=== PATIENT | male | born 1925 | race African-American/Black ===

== ENCOUNTER 2016-03-27 15:56 | Inpatient (IN) | payer MEDICARE ==
--- NOTE | 2016-03-27 16:10 | ER Document Report ---
ED General <WICHO MG - Last Filed: 03/28/16 00:25> - General Mode of Arrival: Medic Information source: Emergency Med Personnel TRAVEL OUTSIDE OF THE [place] IN LAST 30 DAYS: No - HPI Onset: This afternoon Onset/Duration: Sudden Quality of pain: No pain Associated symptoms: Fever Exacerbated by: Denies Relieved by: Denies Similar symptoms previously: No Recently seen / treated by doctor: No <GRADY THOMAS - Last Filed: 03/28/16 20:36> - General Stated Complaint: POSSIBLE UTI Notes: Patient presents to the emergency department via EMS for reports of lethargic warm to touch incontinence of urine possible UTI. Hegets reports the patient lives in a private home with a drying room attendant and several other residents. Report was that patient was normal this morning. This afternoon after lunch patient became warm hearts with lethargic and was incontinent of urine. Patient is not normally incontinent. Patient has history of COPD hypertension and chronic kidney disease. Patient is alert and orientated to self upon arrival. He is pleasant in no distress (GRADY THOMAS) - Related Data Allergies/Adverse Reactions: No Known Allergies Allergy (Verified 03/28/16 01:17) Home Medications: Current Home Medications Omeprazole 40 mg PO DAILY 03/28/16 [History] Past Medical History - General Information source: Patient - Social History Smoking Status: Former Smoker Frequency of alcohol use: None Drug Abuse: None Lives with: Other - home residence with drying room attendant Family History: Reviewed & Not Pertinent - Past Medical History Cardiac Medical History: Reports: Hx Hypercholesterolemia, Hx Hypertension, Hx Peripheral Vascular Disease Pulmonary Medical History: Reports: Hx COPD Denies: Hx Tuberculosis Neurological Medical History: Reports: Hx Cerebrovascular Accident. Denies: Hx Seizures Endocrine Medical History: Denies: Hx Diabetes Mellitus Type 1, Hx Diabetes Mellitus Type 2 Musculoskeltal Medical History: Reports Hx Arthritis - Generalized. Past Surgical History: Reports: Hx Orthopedic Surgery. Denies: Hx Pacemaker - Immunizations Immunizations up to date: Yes Hx Diphtheria, Pertussis, Tetanus Vaccination: Yes <GRADY THOMAS - Last Filed: 03/28/16 20:36> Review of Systems <WICHO MG - Last Filed: 03/28/16 00:25> <GRADY THOMAS - Last Filed: 03/28/16 20:36> - Review of Systems Notes: Review HPI for review of systems., All other systems negative (GRADY THOMAS) Physical Exam <WICHO MG - Last Filed: 03/28/16 00:25> <GRADY THOMAS - Last Filed: 03/28/16 20:36> - Vital signs Vitals: Resp 19 03/27/16 16:24 (WICHO MG) - Notes Notes: PHYSICAL EXAMINATION: GENERAL: Nontoxic looking HEAD: Atraumatic, normocephalic. EYES: extraocular movements intact, sclera anicteric, conjunctiva are normal. ENT: nares patent, Moist mucous membranes. mumbles NECK: Normal range of motion, supple without lymphadenopathy LUNGS: CTAB and equal. No wheezes rales or rhonchi. HEART: Regular rate and rhythm without murmurs ABDOMEN: Soft, no tenderness. No guarding, no rebound EXTREMITIES: Normal range of motion, no pitting edema. No cyanosis. NEUROLOGICAL: Cranial nerves grossly intact. Normal sensory/motor exams. PSYCH: Normal mood, calm, no distress SKIN: Warm, Dry, normal turgor for patient (GRADY THOMAS) Course - Laboratory Result Diagrams: 03/27/16 16:40 03/27/16 16:40 <WICHO MG - Last Filed: 03/28/16 00:25> - Laboratory Result Diagrams: 03/28/16 05:29 03/28/16 05:29 - Diagnostic Test Radiology reviewed: Image reviewed, Reports reviewed - negative - EKG Interpretation by Oh Rhythm: A.Fib <GRADY THOMAS - Last Filed: 03/28/16 20:36> - Re-evaluation Re-evalutation: Patient hypotensive, giving additional IV fluids, patient's dosing of vancomycin delayed due to difficulty getting the patient weighed, after this was accomplished vancomycin 1250 mg was ordered. Blood pressure significantly improved, then normalized. Patient with no headache, full range of motion, alert and responsive, very low suspicion of meningitis. Abdomen is only mildly tender on examination, urine does not show any overt evidence of infection, shows hematuria, discussed with Dr. Thorpe. CAT scan performed, influenza tested, both are unremarkable. Called and spoke with Dr. Cardenas, on-call for patient's primary provider, patient will be admitted to the hospital for fever, hypotension, SIRS. (WICHO MG) 03/27/16 18:06 I do not have a current weight, I will base fluid bolus for sepsis based on weight of 57.8 with 30ml/kg from previous weight from September 2015 for approximately 1700 mL. Patient has received 500 mL from EMS. Will order denies was 1000 ml normal saline bolus. WBC 11. Waiting for urine. Lactic acid 2.5 03/27/16 19:14 Report given to Wicho SUTHERLAND (GRADY THOMAS) - Vital Signs Vital signs: Temp Pulse Resp BP Pulse Ox 98.4 F 81 18 113/47 L 99 03/28/16 19:31 03/28/16 19:31 03/28/16 19:31 03/28/16 19:31 03/28/16 19:31 (WICHO MG) - Laboratory Laboratory results interpreted by me: 03/27/16 03/27/16 03/27/16 16:40 16:40 16:40 WBC 11.9 H RBC 4.30 L Hgb 11.4 L Hct 33.4 L MCV 78 L MCH 26.5 L RDW 17.4 H Plt Count 102 L Seg Neutrophils % 81.3 H Lymphocytes % 6.9 L Absolute Neutrophils 9.6 H Potassium 3.1 L Carbon Dioxide 20 L BUN 29 H Creatinine 2.26 H Est GFR ( Amer) 33 L Est GFR (Non-Af Amer) 27 L Glucose 129 H Lactic Acid 2.5 H Urine Protein Urine Blood Ur Leukocyte Esterase 03/27/16 18:45 WBC RBC Hgb Hct MCV MCH RDW Plt Count Seg Neutrophils % Lymphocytes % Absolute Neutrophils Potassium Carbon Dioxide BUN Creatinine Est GFR ( Amer) Est GFR (Non-Af Amer) Glucose Lactic Acid Urine Protein 30 H Urine Blood LARGE H Ur Leukocyte Esterase SMALL H (WICHO MG) Discharge - Discharge Admitting Provider: Ronald - for Dr. Anglin Unit Admitted: Telemetry <WICHO MG - Last Filed: 03/28/16 00:25> <GRADY THOMAS - Last Filed: 03/28/16 20:36> - Discharge Clinical Impression: SIRS (systemic inflammatory response syndrome) Fever Qualifiers: Fever type: unspecified Qualified Code(s): R50.9 - Fever, unspecified Hypotension Qualifiers: Hypotension type: unspecified hypotension type Qualified Code(s): I95.9 - Hypotension, unspecified Condition: Stable Disposition: ADMITTED INPATIENT
[2016-03-27 17:00] LABS: ABSOLUTE BASOPHILS # (AUTO) 0.1 10^3/uL (0.0-0.2); ABSOLUTE LYMPHOCYTES (AUTO) 0.8 10^3/uL (0.5-4.7); ABSOLUTE MONOCYTES (AUTO) 1.3 10^3/uL (0.1-1.4); ABSOLUTE NEUT (AUTO) 9.6 10^3/uL (1.7-8.2); BASOPHILS % (AUTO) 0.8 % (0-2); EOSINOPHILS % (AUTO) 0.3 % (0-6); HEMATOCRIT 33.4 % (37.9-51.0); HEMOGLOBIN 11.4 g/dL (13.5-17.0); HGB HCT DIFFERENCE 0.8; LYMPHOCYTES % (AUTO) 6.9 % (13-45); MEAN CORPUSCULAR HEMOGLOBIN 26.5 pg (27.0-33.4); MEAN CORPUSCULAR HGB CONC 34.2 g/dL (32.0-36.0); MEAN CORPUSCULAR VOLUME 78 fl (80-97); MONOCYTES % (AUTO) 10.7 % (3-13); RED CELL DISTRIBUTION WIDTH 17.4 % (11.5-14.0); SEGMENTED NEUTROPHILS % (AUTO) 81.3 % (42-78); WHITE BLOOD COUNT 11.9 10^3/uL (4.0-10.5)
[2016-03-27 17:19] LABS: ALANINE AMINOTRANSFERASE 22 U/L (21-72); ALBUMIN 3.8 g/dL (3.5-5.0); ALKALINE PHOSPHATASE 86 U/L (38-126); ANION GAP 15 (5-19); ASPARTATE AMINO TRANSFERASE 19 U/L (17-59); BILIRUBIN,TOTAL 0.8 mg/dL (0.2-1.3); BLOOD UREA NITROGEN 29 mg/dL (7-20); CALCIUM 9.3 mg/dL (8.4-10.2); CARBON DIOXIDE 20 mmol/L (22-30); CHLORIDE 106 mmol/L (98-107); CREATININE RESULT 2.26 mg/dL (0.52-1.25); GLUCOSE 129 mg/dL (75-110); LIPASE 129.2 U/L (23-300); POTASSIUM 3.1 mmol/L (3.6-5.0); SODIUM 141.3 mmol/L (137-145); TOTAL PROTEIN 7.1 g/dL (6.3-8.2)
[2016-03-27] MEDS ORDERED: NORMAL SALINE 1000 ML 1,000 ML IV ONE ×2 (17:52→19:13)
[2016-03-27] MEDS ORDERED: CEFTRIAXONE RTU 1 GM/D5W 50 ML IV ONE (17:53)
[2016-03-27] MEDS ORDERED: LIDOCAINE 2% URO-JET 5 ML KIT MM ONE (18:31)
[2016-03-27 20:40] LABS: AMORPHOUS SEDIMENT,URINE TRACE /HPF; APPEARANCE,URINE CLOUDY; BILIRUBIN,URINE NEGATIVE (NEGATIVE); GLUCOSE, URINE NEGATIVE (NEGATIVE); KETONES,URINE NEGATIVE (NEGATIVE); LEUKOCYTE ESTERASE,URINE SMALL (NEGATIVE); NITRITE,URINE NEGATIVE (NEGATIVE); PROTEIN,URINE 30 mg/dL (NEGATIVE); URINE SPECIFIC GRAVITY 1.019; UROBILINOGEN,URINE NEGATIVE mg/dL (<2.0)
[2016-03-27] MEDS ORDERED: VANCOMYCIN HCL INJ 1000 MG VIAL IV ONE (22:27)
--- NOTE | 2016-03-27 22:40 | EKG REPORT ---
SEVERITY:- ABNORMAL ECG - ATRIAL FIBRILLATION, V-RATE 61-108 VENTRICULAR PREMATURE COMPLEX BORDERLINE PROLONGED QT INTERVAL : Confirmed by: Genaro De León MD 27-Mar-2016 22:38:41
[2016-03-27] MEDS ORDERED: ACETAMINOPHEN 325 MG TABLET PO PRN (23:39)
[2016-03-28] MEDS: POTASSI CL 20 MEQ/NS 1L 1,000 ML IV PRN ×2 (02:57→15:15)
[2016-03-28 05:58] LABS: ABSOLUTE BASOPHILS # (AUTO) 0.1 10^3/uL (0.0-0.2); ABSOLUTE LYMPHOCYTES (AUTO) 1.1 10^3/uL (0.5-4.7); ABSOLUTE MONOCYTES (AUTO) 2.4 10^3/uL (0.1-1.4); ABSOLUTE NEUT (AUTO) 15.1 10^3/uL (1.7-8.2); BASOPHILS % (AUTO) 0.5 % (0-2); EOSINOPHILS % (AUTO) 0.2 % (0-6); HEMATOCRIT 28.5 % (37.9-51.0); HEMOGLOBIN 9.7 g/dL (13.5-17.0); HGB HCT DIFFERENCE 0.6; LYMPHOCYTES % (AUTO) 5.8 % (13-45); MEAN CORPUSCULAR HEMOGLOBIN 26.3 pg (27.0-33.4); MEAN CORPUSCULAR HGB CONC 33.9 g/dL (32.0-36.0); MEAN CORPUSCULAR VOLUME 78 fl (80-97); MONOCYTES % (AUTO) 12.8 % (3-13); RED BLOOD COUNT 3.68 10^6/uL (4.35-5.55); RED CELL DISTRIBUTION WIDTH 17.2 % (11.5-14.0); SEGMENTED NEUTROPHILS % (AUTO) 80.7 % (42-78); WHITE BLOOD COUNT 18.8 10^3/uL (4.0-10.5)
[2016-03-28 06:11] LABS: ANION GAP 10 (5-19); BLOOD UREA NITROGEN 23 mg/dL (7-20); CALCIUM 8.4 mg/dL (8.4-10.2); CARBON DIOXIDE 23 mmol/L (22-30); CHLORIDE 108 mmol/L (98-107); CREATININE RESULT 1.76 mg/dL (0.52-1.25); GLUCOSE 109 mg/dL (75-110); POTASSIUM 3.6 mmol/L (3.6-5.0); SODIUM 140.8 mmol/L (137-145)
[2016-03-28] MEDS: ENOXAPARIN SODIUM INJ 30 MG/0.3 ML DISP.SYRIN SUBCUT SCH (08:31)
[2016-03-28] MEDS: CEFEPIME 1 GM/D5W RTU 50 ML IV SCH ×2 (10:44→22:45)
[2016-03-28] MEDS: FAMOTIDINE INJ/PF 20 MG/2 ML SDV IV SCH ×2 (10:45→22:45)
--- NOTE | 2016-03-28 11:31 | PDOC H&P ---
History of Present Illness Admission Date/PCP: 03/27/16 23:40 NAMITA MCCAULEY, Patient complains of: Altered mental status History of Present Illness: ALINA LEHMAN is a 89 year old male The patient's present to the emergency department via EMS to deport more lethargic warm to touch and possible urinary tract infections and altered mental status and the interim is a department patient's symptoms have a CT abdomen and pelvis and all other blood work was done and found the possible urinary tract infections and decided to admit in the hospital further evaluation and treatment patient has a significant history of the heart to hearing and also COPD hypertension chronic kidney disease patient was given Rocephin 1 g IV in the ER and the patient's also start IV fluid and I saw the patient in the floor patient is doing well denied any chest pain no short of breath patient's is very hard to hearing other than that no other events happen overnights this current blood pressure medication was stopped because of the low blood pressure due to the possible infections he had patient's other blood work is stable Past Medical History Cardiac Medical History: Reports: Hyperlipidema, Hypertension, Peripheral Vascular Disease Pulmonary Medical History: Reports: Chronic Obstructive Pulmonary Disease (COPD) Denies: Tuberculosis Neurological Medical History: Denies: Seizures Endocrine Medical History: Denies: Diabetes Mellitus Type 1, Diabetes Mellitus Type 2 GI Medical History: Reports: Gastroesophageal Reflux Disease GI History Note: Dysphagia status post balloon meditations per Dr. Valencia Musculoskeltal Medical History: Reports: Arthritis - Generalized. Psychiatric Medical History: Reports: Dementia Hematology: Reports: Anemia Past Surgical History Past Surgical History: Reports: Orthopedic Surgery, Other Denies: Pacemaker Social History Lives with: Other - home residence with wilton weaver Smoking Status: Smoker,Current Status Unk Frequency of Alcohol Use: None Hx Recreational Drug Use: No Drugs: None Hx Prescription Drug Abuse: No - Advance Directive Resuscitation Status: Full Code Family History Family History: Reviewed & Not Pertinent Parental Family History Reviewed: Yes Children Family History Reviewed: Yes Sibling(s) Family History Reviewed.: Yes Medication/Allergy Home Medications: Albuterol Sulfate [Proair HFA] 1 - 2 puff IH Q4 PRN 02/01/15 Amlodipine Besylate 10 mg PO DAILY 02/01/15 Aspirin [Aspirin 81 mg Chewable Tablet] 81 mg PO DAILY 02/01/15 Losartan/Hydrochlorothiazide [Hyzaar 100-12.5 Tablet] 1 each PO DAILY 02/01/15 Omeprazole 40 mg PO DAILY 03/28/16 Allergies/Adverse Reactions: No Known Allergies Allergy (Verified 03/28/16 01:17) Review of Systems Constitutional: PRESENT: weakness Ears: PRESENT: hearing changes Nose, Mouth, and Throat: ABSENT: as per HPI, headache(s), mouth pain, sore throat, vertigo, other Cardiovascular: ABSENT: as per HPI, chest pain, dyspnea on exertion, edema, orthropnea, palpitations, other Respiratory: ABSENT: as per HPI, cough, dyspnea, hemoptysis, sputum, other Gastrointestinal: ABSENT: as per HPI, abdominal pain, bloating, coffee ground emesis, constipation, diarrhea, dysphagia, heartburn, hematemesis, hematochezia , melena, nausea, vomiting, other Genitourinary: ABSENT: difficulty urinating Musculoskeletal: ABSENT: back pain Integumentary: ABSENT: as per HPI, diaphoresis, erythema, lesions, pruritus, rash, wounds, other Neurological: PRESENT: confusion Physical Exam Vital Signs: Temp Pulse Resp BP Pulse Ox 98.7 F 78 16 97/49 L 99 03/28/16 09:09 03/28/16 09:09 03/28/16 09:09 03/28/16 09:09 03/28/16 09:09 Intake & Output 03/27/16 03/28/16 03/29/16 06:59 06:59 06:59 Intake Total 200 Balance 200 Weight 57.6 kg General appearance: PRESENT: no acute distress Eye exam: PRESENT: PERRLA Ear exam: PRESENT: other Additional comments: hard to hearing Mouth exam: PRESENT: dry mucosa Neck exam: PRESENT: full ROM Respiratory exam: PRESENT: clear to auscultation nino Cardiovascular exam: PRESENT: +S1, +S2 GI/Abdominal exam: PRESENT: normal bowel sounds, soft. ABSENT: tenderness Extremities exam: ABSENT: pedal edema Neurological exam: PRESENT: alert, awake Psychiatric exam: PRESENT: anxious Skin exam: PRESENT: normal color Results Laboratory Results: 03/28/16 05:29 03/28/16 05:29 03/28/16 03/28/16 05:29 05:29 WBC 18.8 H RBC 3.68 L Hgb 9.7 L Hct 28.5 L MCV 78 L MCH 26.3 L MCHC 33.9 RDW 17.2 H Plt Count 99 L Seg Neutrophils % 80.7 H Lymphocytes % 5.8 L Monocytes % 12.8 Eosinophils % 0.2 Basophils % 0.5 Absolute Neutrophils 15.1 H Absolute Lymphocytes 1.1 Absolute Monocytes 2.4 H Absolute Eosinophils 0.0 Absolute Basophils 0.1 Sodium 140.8 Potassium 3.6 Chloride 108 H Carbon Dioxide 23 Anion Gap 10 BUN 23 H Creatinine 1.76 H Est GFR ( Amer) 44 L Est GFR (Non-Af Amer) 37 L Glucose 109 Calcium 8.4 Impressions: Chest X-Ray 03/27/16 16:09 IMPRESSION: NO ACUTE RADIOGRAPHIC FINDING IN THE CHEST. Abdomen/Pelvis CT 03/27/16 22:29 IMPRESSION: NO SIGNIFICANT OR ACUTE PROCESS IN THE ABDOMEN OR PELVIS. Assessment & Plan - Diagnosis (1) Urinary tract infection Qualifiers: Urinary tract infection type: site unspecified Is this a current diagnosis for this admission?: YesPlan: The urine culture and start the patient on IV cefepime until the cultures come back (2) Hypokalemia Is this a current diagnosis for this admission?: YesPlan: Replace the potassium and IV fluid (3) Dementia Qualifiers: Dementia type: unspecified type Is this a current diagnosis for this admission?: YesPlan: Stable (4) Hypotension Qualifiers: Hypotension type: unspecified hypotension type Qualified Code(s): I95.9 - Hypotension, unspecified Is this a current diagnosis for this admission?: YesPlan: Due to the sepsis continues IV fluid and hold all blood pressure medications (5) SIRS (systemic inflammatory response syndrome) Is this a current diagnosis for this admission?: YesPlan: The sepsis from possible UTI I will get the blood cultures urine culture and continues to monitor the patient on IV antibiotic (6) Acute kidney injury Is this a current diagnosis for this admission?: YesPlan: Problem possible infections UTI will hold all blood pressure medications and continues IV fluid and continues to monitor - Time Time Spent: 30 to 50 Minutes Medications reviewed and adjusted accordingly: Yes Anticipated discharge: Home, Other - Inpatient Certification Medical Necessity: Significant Comorbidiites Make Outpatient Treatment Too Risky , Need For IV Fluids, Need for IV Antibiotics Post Hospital Care: D/C O[facility] Documentation - Plan Summary Plan Summary: Admitting the patient and a floor bed start the IV fluid IV antibiotic wait for all cultures and replace the potassium and continues to monitor the patient
[2016-03-29] MEDS: POTASSI CL 20 MEQ/NS 1L 1,000 ML IV PRN ×2 (06:30→13:03)
[2016-03-29 07:19] LABS: ANION GAP 14 (5-19); BLOOD UREA NITROGEN 14 mg/dL (7-20); CALCIUM 8.7 mg/dL (8.4-10.2); CARBON DIOXIDE 20 mmol/L (22-30); CHLORIDE 107 mmol/L (98-107); CREATININE RESULT 1.29 mg/dL (0.52-1.25); GLUCOSE 101 mg/dL (75-110); POTASSIUM 3.6 mmol/L (3.6-5.0); SODIUM 140.8 mmol/L (137-145)
[2016-03-29 07:35] LABS: ABSOLUTE BASOPHILS # (AUTO) 0.1 10^3/uL (0.0-0.2); ABSOLUTE EOSINOPHILS # (AUTO) 0.1 10^3/uL (0.0-0.6); ABSOLUTE LYMPHOCYTES (AUTO) 0.8 10^3/uL (0.5-4.7); ABSOLUTE MONOCYTES (AUTO) 0.9 10^3/uL (0.1-1.4); ABSOLUTE NEUT (AUTO) 9.6 10^3/uL (1.7-8.2); BASOPHILS % (AUTO) 0.5 % (0-2); EOSINOPHILS % (AUTO) 0.7 % (0-6); HEMATOCRIT 30.5 % (37.9-51.0); HEMOGLOBIN 10.3 g/dL (13.5-17.0); HGB HCT DIFFERENCE 0.4; LYMPHOCYTES % (AUTO) 6.9 % (13-45); MEAN CORPUSCULAR HEMOGLOBIN 26.4 pg (27.0-33.4); MEAN CORPUSCULAR HGB CONC 33.7 g/dL (32.0-36.0); MEAN CORPUSCULAR VOLUME 78 fl (80-97); MONOCYTES % (AUTO) 8.3 % (3-13); RED CELL DISTRIBUTION WIDTH 17.1 % (11.5-14.0); SEGMENTED NEUTROPHILS % (AUTO) 83.6 % (42-78); WHITE BLOOD COUNT 11.4 10^3/uL (4.0-10.5)
[2016-03-29 07:36] LABS: ACANTHOCYTES 1+; ANISOCYTOSIS 1+; HYPOCHROMASIA SLIGHT; OVALOCYTES SLIGHT; POIKILOCYTOSIS 1+; POLYCHROMASIA SLIGHT; TOXIC GRANULATION SLIGHT
--- NOTE | 2016-03-29 09:55 | PDOC PROGRESS REPORT ---
Subjective Progress Note for:: 03/29/16 Subjective:: Patient is doing very well. Currently seated in chair patient's denied any chest pain no abdominal pain no nausea no vomiting patient's kidney function is also improving . All blood culture and urine culture is negative Physical Exam Vital Signs: Temp Pulse Resp BP Pulse Ox 98.7 F 88 20 128/53 H 97 03/28/16 23:30 03/28/16 23:30 03/28/16 23:30 03/28/16 23:30 03/28/16 23:30 Intake & Output 03/28/16 03/29/16 03/30/16 06:59 06:59 06:59 Intake Total 200 3218 Output Total 400 Balance 200 2818 Weight 57.6 kg 78.8 kg General appearance: PRESENT: no acute distress Head exam: PRESENT: normocephalic Additional Comments: Very hard to hearing Mouth exam: PRESENT: neck supple Respiratory exam: PRESENT: clear to auscultation nino Cardiovascular exam: PRESENT: +S1, +S2 GI/Abdominal exam: PRESENT: normal bowel sounds, soft Extremities exam: ABSENT: pedal edema Neurological exam: PRESENT: alert, awake, oriented to person, oriented to place Psychiatric exam: PRESENT: normal mood Skin exam: PRESENT: normal color Results Laboratory Results: 03/29/16 05:40 03/29/16 05:40 03/29/16 03/29/16 05:40 05:40 WBC 11.4 H RBC 3.90 L Hgb 10.3 L Hct 30.5 L MCV 78 L MCH 26.4 L MCHC 33.7 RDW 17.1 H Plt Count 92 L Seg Neutrophils % 83.6 H Lymphocytes % 6.9 L Monocytes % 8.3 Eosinophils % 0.7 Basophils % 0.5 Absolute Neutrophils 9.6 H Absolute Lymphocytes 0.8 Absolute Monocytes 0.9 Absolute Eosinophils 0.1 Absolute Basophils 0.1 Sodium 140.8 Potassium 3.6 Chloride 107 Carbon Dioxide 20 L Anion Gap 14 BUN 14 Creatinine 1.29 H Est GFR ( Amer) > 60 Est GFR (Non-Af Amer) 52 L Glucose 101 Calcium 8.7 Impressions: Chest X-Ray 03/27/16 16:09 IMPRESSION: NO ACUTE RADIOGRAPHIC FINDING IN THE CHEST. Abdomen/Pelvis CT 03/27/16 22:29 IMPRESSION: NO SIGNIFICANT OR ACUTE PROCESS IN THE ABDOMEN OR PELVIS. Assessment & Plan - Diagnosis (1) Urinary tract infection Qualifiers: Urinary tract infection type: site unspecified Is this a current diagnosis for this admission?: YesPlan: The urine culture and start the patient on IV cefepime until the cultures come back (2) Hypokalemia Is this a current diagnosis for this admission?: YesPlan: Replace the potassium and IV fluid (3) Dementia Qualifiers: Dementia type: unspecified type Is this a current diagnosis for this admission?: YesPlan: Stable (4) Hypotension Qualifiers: Hypotension type: unspecified hypotension type Qualified Code(s): I95.9 - Hypotension, unspecified Is this a current diagnosis for this admission?: YesPlan: Continues IV fluid and all resolved (5) SIRS (systemic inflammatory response syndrome) Is this a current diagnosis for this admission?: YesPlan: The sepsis from possible UTI I will get the blood cultures urine culture and continues to monitor the patient on IV antibiotic (6) Acute kidney injury Is this a current diagnosis for this admission?: YesPlan: Continue IV fluid - Time Time Spent with patient: 15-24 minutes Medications reviewed and adjusted accordingly: Yes Anticipated discharge: Home Within: within 48 hours - Inpatient Certification Medical Necessity: Need For IV Fluids, Need for IV Antibiotics - Plan Summary Plan Summary: Continues to IV fluid energy. The Chem-7 in the morning and hopefully patient' s discharge very soon will be discharged with the by mouth antibiotic given the culture is negative
[2016-03-29] MEDS: ENOXAPARIN SODIUM INJ 30 MG/0.3 ML DISP.SYRIN SUBCUT SCH (12:19)
[2016-03-29] MEDS: CEFEPIME 1 GM/D5W RTU 50 ML IV SCH ×2 (12:20→21:56)
[2016-03-29] MEDS: FAMOTIDINE INJ/PF 20 MG/2 ML SDV IV SCH ×2 (12:21→21:56)
[2016-03-30] MEDS: POTASSI CL 20 MEQ/NS 1L 1,000 ML IV PRN (02:17)
[2016-03-30 06:48] LABS: ABSOLUTE BASOPHILS # (AUTO) 0.1 10^3/uL (0.0-0.2); ABSOLUTE EOSINOPHILS # (AUTO) 0.1 10^3/uL (0.0-0.6); ABSOLUTE LYMPHOCYTES (AUTO) 1.4 10^3/uL (0.5-4.7); ABSOLUTE MONOCYTES (AUTO) 1.5 10^3/uL (0.1-1.4); ABSOLUTE NEUT (AUTO) 12.1 10^3/uL (1.7-8.2); BASOPHILS % (AUTO) 0.7 % (0-2); HEMATOCRIT 28.2 % (37.9-51.0); HEMOGLOBIN 9.7 g/dL (13.5-17.0); HGB HCT DIFFERENCE 0.9; LYMPHOCYTES % (AUTO) 9.2 % (13-45); MEAN CORPUSCULAR HEMOGLOBIN 26.4 pg (27.0-33.4); MEAN CORPUSCULAR HGB CONC 34.2 g/dL (32.0-36.0); MEAN CORPUSCULAR VOLUME 77 fl (80-97); MONOCYTES % (AUTO) 9.6 % (3-13); RED BLOOD COUNT 3.65 10^6/uL (4.35-5.55); RED CELL DISTRIBUTION WIDTH 16.6 % (11.5-14.0); SEGMENTED NEUTROPHILS % (AUTO) 79.5 % (42-78); WHITE BLOOD COUNT 15.2 10^3/uL (4.0-10.5)
[2016-03-30 06:51] LABS: ANION GAP 11 (5-19); BLOOD UREA NITROGEN 13 mg/dL (7-20); CALCIUM 8.2 mg/dL (8.4-10.2); CARBON DIOXIDE 20 mmol/L (22-30); CHLORIDE 109 mmol/L (98-107); CREATININE RESULT 1.22 mg/dL (0.52-1.25); GLUCOSE 90 mg/dL (75-110); POTASSIUM 3.9 mmol/L (3.6-5.0); SODIUM 139.8 mmol/L (137-145)
[2016-03-30] MEDS: FAMOTIDINE INJ/PF 20 MG/2 ML SDV IV SCH ×2 (09:49→21:26)
[2016-03-30] MEDS: CEFEPIME 1 GM/D5W RTU 50 ML IV SCH ×2 (09:50→21:26)
--- NOTE | 2016-03-30 18:50 | PDOC PROGRESS REPORT ---
Subjective Progress Note for:: 03/30/16 Subjective:: Patient was admitted because of UTI and acute kidney injury, he is responding to IV antibiotic and also hydration. Physical Exam Vital Signs: Temp Pulse Resp BP Pulse Ox 98.7 F 56 L 18 135/66 H 95 03/30/16 16:03 03/30/16 16:03 03/30/16 16:03 03/30/16 16:03 03/30/16 16:03 Intake & Output 03/29/16 03/30/16 03/31/16 06:59 06:59 06:59 Intake Total 3218 1058 825 Output Total 400 350 Balance 2818 708 825 Weight 78.8 kg 79.2 kg General appearance: PRESENT: no acute distress Eye exam: PRESENT: PERRLA Respiratory exam: PRESENT: clear to auscultation nino Cardiovascular exam: PRESENT: +S1, +S2 GI/Abdominal exam: PRESENT: soft Neurological exam: PRESENT: alert, CN II-XII grossly intact Results Laboratory Results: 03/30/16 05:42 03/30/16 05:42 03/30/16 03/30/16 05:42 05:42 WBC 15.2 H RBC 3.65 L Hgb 9.7 L Hct 28.2 L MCV 77 L MCH 26.4 L MCHC 34.2 RDW 16.6 H Plt Count 93 L Seg Neutrophils % 79.5 H Lymphocytes % 9.2 L Monocytes % 9.6 Eosinophils % 1.0 Basophils % 0.7 Absolute Neutrophils 12.1 H Absolute Lymphocytes 1.4 Absolute Monocytes 1.5 H Absolute Eosinophils 0.1 Absolute Basophils 0.1 Sodium 139.8 Potassium 3.9 Chloride 109 H Carbon Dioxide 20 L Anion Gap 11 BUN 13 Creatinine 1.22 Est GFR ( Amer) > 60 Est GFR (Non-Af Amer) 56 L Glucose 90 Calcium 8.2 L Impressions: Chest X-Ray 03/27/16 16:09 IMPRESSION: NO ACUTE RADIOGRAPHIC FINDING IN THE CHEST. Abdomen/Pelvis CT 03/27/16 22:29 IMPRESSION: NO SIGNIFICANT OR ACUTE PROCESS IN THE ABDOMEN OR PELVIS. Assessment & Plan - Diagnosis (1) Urinary tract infection Qualifiers: Urinary tract infection type: site unspecified Hematuria presence: without hematuria Qualified Code(s): N39.0 - Urinary tract infection, site not specified Is this a current diagnosis for this admission?: YesPlan: Continue IV antibiotic (3) Dementia Qualifiers: Dementia type: Alzheimer's disease Alzheimer's disease onset: early- onset Dementia behavioral disturbance: without behavioral disturbance Qualified Code(s): G30.0 - Alzheimer's disease with early onset; F02.80 - Dementia in other diseases classified elsewhere without behavioral disturbance Is this a current diagnosis for this admission?: Yes (4) Hypokalemia Is this a current diagnosis for this admission?: Yes (5) SIRS (systemic inflammatory response syndrome) Is this a current diagnosis for this admission?: Yes (6) Acute kidney injury Is this a current diagnosis for this admission?: Yes
[2016-03-31] MEDS: POTASSI CL 20 MEQ/NS 1L 1,000 ML IV PRN ×2 (05:10→19:43)
[2016-03-31] MEDS: FAMOTIDINE INJ/PF 20 MG/2 ML SDV IV SCH ×2 (09:16→21:04)
[2016-03-31] MEDS: CEFEPIME 1 GM/D5W RTU 50 ML IV SCH ×2 (09:16→21:04)
[2016-03-31 17:38] LABS: ABSOLUTE BASOPHILS # (AUTO) 0.1 10^3/uL (0.0-0.2); ABSOLUTE EOSINOPHILS # (AUTO) 0.2 10^3/uL (0.0-0.6); ABSOLUTE LYMPHOCYTES (AUTO) 1.2 10^3/uL (0.5-4.7); ABSOLUTE NEUT (AUTO) 12.8 10^3/uL (1.7-8.2); BASOPHILS % (AUTO) 0.7 % (0-2); HEMATOCRIT 28.2 % (37.9-51.0); HEMOGLOBIN 9.6 g/dL (13.5-17.0); HGB HCT DIFFERENCE 0.6; LYMPHOCYTES % (AUTO) 7.9 % (13-45); MEAN CORPUSCULAR HEMOGLOBIN 26.3 pg (27.0-33.4); MEAN CORPUSCULAR HGB CONC 33.9 g/dL (32.0-36.0); MEAN CORPUSCULAR VOLUME 78 fl (80-97); MONOCYTES % (AUTO) 6.4 % (3-13); RED BLOOD COUNT 3.64 10^6/uL (4.35-5.55); RED CELL DISTRIBUTION WIDTH 16.9 % (11.5-14.0); WHITE BLOOD COUNT 15.3 10^3/uL (4.0-10.5)
[2016-03-31 17:48] LABS: ALANINE AMINOTRANSFERASE 33 U/L (21-72); ALBUMIN 2.8 g/dL (3.5-5.0); ALKALINE PHOSPHATASE 67 U/L (38-126); ANION GAP 11 (5-19); ASPARTATE AMINO TRANSFERASE 21 U/L (17-59); BILIRUBIN,TOTAL 0.6 mg/dL (0.2-1.3); BLOOD UREA NITROGEN 9 mg/dL (7-20); CALCIUM 8.5 mg/dL (8.4-10.2); CARBON DIOXIDE 21 mmol/L (22-30); CHLORIDE 106 mmol/L (98-107); GLUCOSE 98 mg/dL (75-110); POTASSIUM 4.1 mmol/L (3.6-5.0); SODIUM 138.3 mmol/L (137-145)
[2016-04-01] MEDS: POTASSI CL 20 MEQ/NS 1L 1,000 ML IV PRN (07:56)
[2016-04-01] MEDS: CEFEPIME 1 GM/D5W RTU 50 ML IV SCH ×2 (10:01→21:42)
[2016-04-01] MEDS: FAMOTIDINE INJ/PF 20 MG/2 ML SDV IV SCH (10:01)
--- NOTE | 2016-04-01 20:55 | PDOC PROGRESS REPORT ---
Subjective Progress Note for:: 04/01/16 Subjective:: Patient was seen by the bedside, somewhat confused, he has persistent leukocytosis, WBC 15,000 Physical Exam Vital Signs: Temp Pulse Resp BP Pulse Ox 98.8 F 93 18 146/84 H 100 04/01/16 12:29 04/01/16 12:29 04/01/16 12:29 04/01/16 12:29 04/01/16 12:29 Intake & Output 03/31/16 04/01/16 04/02/16 06:59 06:59 06:59 Intake Total 1650 2550 240 Output Total 320 1350 400 Balance 1330 1200 -160 Weight 78.2 kg 79.2 kg General appearance: PRESENT: no acute distress Eye exam: PRESENT: PERRLA Respiratory exam: PRESENT: crackles Cardiovascular exam: PRESENT: +S1, +S2 Neurological exam: PRESENT: alert Results Laboratory Results: 03/31/16 17:30 03/31/16 17:30 Impressions: Chest X-Ray 03/27/16 16:09 IMPRESSION: NO ACUTE RADIOGRAPHIC FINDING IN THE CHEST. Abdomen/Pelvis CT 03/27/16 22:29 IMPRESSION: NO SIGNIFICANT OR ACUTE PROCESS IN THE ABDOMEN OR PELVIS. Assessment & Plan - Diagnosis (1) Urinary tract infection Qualifiers: Urinary tract infection type: site unspecified Hematuria presence: without hematuria Qualified Code(s): N39.0 - Urinary tract infection, site not specified Is this a current diagnosis for this admission?: Yes (3) Dementia Qualifiers: Dementia type: Alzheimer's disease Alzheimer's disease onset: early- onset Dementia behavioral disturbance: without behavioral disturbance Qualified Code(s): G30.0 - Alzheimer's disease with early onset; F02.81 - Dementia in other diseases classified elsewhere with behavioral disturbance Is this a current diagnosis for this admission?: Yes (4) Hypokalemia Is this a current diagnosis for this admission?: Yes (5) SIRS (systemic inflammatory response syndrome) Is this a current diagnosis for this admission?: YesPlan: Patient empirically on intravenous cefepime for presumptive UTI, urine cultures so far negative. CT chest to be ordered (6) Acute kidney injury Is this a current diagnosis for this admission?: Yes
--- NOTE | 2016-04-01 20:57 | PDOC PROGRESS REPORT ---
Subjective Progress Note for:: 03/31/16 Subjective:: Patient was seen by the bedside, he continues to require empiric IV antibiotic for UTI Physical Exam Vital Signs: Temp Pulse Resp BP Pulse Ox 98.9 F 103 H 20 136/55 H 100 03/31/16 16:00 03/31/16 16:00 03/31/16 16:00 03/31/16 16:00 03/31/16 16:00 Intake & Output 03/30/16 03/31/16 04/01/16 06:59 06:59 06:59 Intake Total 1058 1650 400 Output Total 350 320 300 Balance 708 1330 100 Weight 79.2 kg 78.2 kg General appearance: PRESENT: no acute distress Eye exam: PRESENT: PERRLA Respiratory exam: PRESENT: rales Cardiovascular exam: PRESENT: +S1, +S2 Results Laboratory Results: 03/30/16 05:42 03/30/16 05:42 Impressions: Chest X-Ray 03/27/16 16:09 IMPRESSION: NO ACUTE RADIOGRAPHIC FINDING IN THE CHEST. Abdomen/Pelvis CT 03/27/16 22:29 IMPRESSION: NO SIGNIFICANT OR ACUTE PROCESS IN THE ABDOMEN OR PELVIS. Assessment & Plan - Diagnosis (1) Urinary tract infection Qualifiers: Urinary tract infection type: site unspecified Hematuria presence: without hematuria Qualified Code(s): N39.0 - Urinary tract infection, site not specified Is this a current diagnosis for this admission?: Yes (3) Dementia Qualifiers: Dementia type: Alzheimer's disease Alzheimer's disease onset: early- onset Dementia behavioral disturbance: without behavioral disturbance Qualified Code(s): G30.0 - Alzheimer's disease with early onset; F02.81 - Dementia in other diseases classified elsewhere with behavioral disturbance Is this a current diagnosis for this admission?: Yes (4) Hypokalemia Is this a current diagnosis for this admission?: Yes (5) SIRS (systemic inflammatory response syndrome) Is this a current diagnosis for this admission?: Yes (6) Acute kidney injury Is this a current diagnosis for this admission?: Yes
[2016-04-02 07:23] LABS: HEMATOCRIT 27.9 % (37.9-51.0); HEMOGLOBIN 9.6 g/dL (13.5-17.0); HGB HCT DIFFERENCE 0.9; MEAN CORPUSCULAR HEMOGLOBIN 26.4 pg (27.0-33.4); MEAN CORPUSCULAR HGB CONC 34.4 g/dL (32.0-36.0); MEAN CORPUSCULAR VOLUME 77 fl (80-97); RED BLOOD COUNT 3.64 10^6/uL (4.35-5.55); RED CELL DISTRIBUTION WIDTH 17.3 % (11.5-14.0)
[2016-04-02 07:37] LABS: ANION GAP 12 (5-19); BLOOD UREA NITROGEN 11 mg/dL (7-20); CARBON DIOXIDE 23 mmol/L (22-30); CHLORIDE 102 mmol/L (98-107); GLUCOSE 93 mg/dL (75-110); POTASSIUM 4.6 mmol/L (3.6-5.0); SODIUM 137.3 mmol/L (137-145)
[2016-04-02] MEDS: CEFEPIME 1 GM/D5W RTU 50 ML IV SCH ×2 (09:17→23:16)
[2016-04-02] MEDS: CLINDAMYCIN 600 MG/D5W RTU 600 MG/50 ML RTUPB IV SCH ×2 (10:29→17:12)
[2016-04-02] MEDS ORDERED: LIDOCAINE 1% INJ-PF (10 MG/ML) 30 ML SDV INJ PRN (11:24)
[2016-04-03] MEDS: CLINDAMYCIN 600 MG/D5W RTU 600 MG/50 ML RTUPB IV SCH ×3 (02:34→17:13)
[2016-04-03] MEDS: CEFEPIME 1 GM/D5W RTU 50 ML IV SCH (09:59)
--- NOTE | 2016-04-03 11:24 | Operative Report ---
Operative Report DATE OF SURGERY: 04/02/16 PREOPERATIVE DIAGNOSIS: Perineal abscess POSTOPERATIVE DIAGNOSIS: Perineal abscess OPERATION: Incision and drainage of perineal abscess SURGEON: ALIREZA SIBLEY ANESTHESIA: Local TISSUE REMOVED OR ALTERED: Wound culture COMPLICATIONS: None noted ESTIMATED BLOOD LOSS: minimal INTRAOPERATIVE FINDINGS: Perineal abscess PROCEDURE: Consent was obtained from the patient's caregiver at the alf, after detailed discussion of the procedure as well as its risk, benefits and alternatives. Risk included but not limited to reaction to local anesthetic, bleeding, infection, recurrence, damage to surrounding structures. Time out was performed. The patient's perineum was prepped and draped in the normal sterile fashion. The skin over the abscess cavity was infiltrated with local anesthetic. A 2 mm area of skin breakdown with spontaneous drainage of purulent material had already occurred. A 15 blade was used to excise an ellipse of skin 1 cm in diameter around this area of spontaneous skin breakdown. There was return of thin clear fluid and thick kate purulent material. A culture was taken and sent to lab for analysis. The cavity was irrigated with hydrogen peroxide. The cavity was probed with swabs and extended anteriorly into the base of the scrotum. The cavity was packed with quarter-inch iodoform gauze. Dressing was placed over that. Patient tolerated the procedure well, except for pain with the initial infiltration with local anesthetic. All sharps were counted for and disposed of properly.
--- NOTE | 2016-04-03 13:19 | PDOC PROGRESS REPORT ---
Subjective Progress Note for:: 04/03/16 Subjective:: No overnight events, patient underwent incision and drainage of perineal abscess at the bedside yesterday. Physical Exam Vital Signs: Temp Pulse Resp BP Pulse Ox 98.0 F 71 18 109/56 L 100 04/03/16 08:07 04/03/16 08:07 04/03/16 08:07 04/03/16 08:07 04/03/16 08:07 Intake & Output 04/02/16 04/03/16 04/04/16 06:59 06:59 06:59 Intake Total 240 456 Output Total 620 350 Balance -380 106 Weight 80.6 kg 58.9 kg General appearance: ABSENT: no acute distress GI/Abdominal exam: PRESENT: soft Rectal exam: PRESENT: deferred Skin exam: PRESENT: other - The wound at the perineal area was checked, packing was removed, no surrounding erythema, there is surrounding nodular changes in the skin, the wound was packed again was a quarter inch packing. Results Laboratory Results: 04/02/16 06:47 04/02/16 06:47 Impressions: Chest X-Ray 03/27/16 16:09 IMPRESSION: NO ACUTE RADIOGRAPHIC FINDING IN THE CHEST. Abdomen/Pelvis CT 03/27/16 22:29 IMPRESSION: NO SIGNIFICANT OR ACUTE PROCESS IN THE ABDOMEN OR PELVIS. Chest CT 04/01/16 00:00 IMPRESSION: No acute cardiopulmonary findings. Assessment & Plan - Diagnosis (1) Perineal abscess Is this a current diagnosis for this admission?: YesPlan: Status post incision and drainage, there is suspicion of hydradenitis in the perineal area, no surrounding skin erythema or skin necrosis. Plan: Continue local wound care, follow-up culture, continue IV antibiotics. We'll follow.
--- NOTE | 2016-04-03 18:07 | PDOC PROGRESS REPORT ---
Subjective Progress Note for:: 04/02/16 Subjective:: He has perineal abscess and consultation is requested from surgery for incision and drainage of the abscess Physical Exam Vital Signs: Temp Pulse Resp BP Pulse Ox 97.8 F 94 20 114/63 100 04/02/16 15:51 04/02/16 15:51 04/02/16 15:51 04/02/16 15:51 04/02/16 15:51 Intake & Output 04/01/16 04/02/16 04/03/16 06:59 06:59 06:59 Intake Total 2550 240 220 Output Total 1350 620 150 Balance 1200 -380 70 Weight 79.2 kg 80.6 kg General appearance: PRESENT: no acute distress Eye exam: PRESENT: PERRLA Respiratory exam: PRESENT: clear to auscultation nino Cardiovascular exam: PRESENT: +S1, +S2 Neurological exam: PRESENT: alert Results Laboratory Results: 04/02/16 06:47 04/02/16 06:47 04/02/16 04/02/16 06:47 06:47 WBC 14.0 H RBC 3.64 L Hgb 9.6 L Hct 27.9 L MCV 77 L MCH 26.4 L MCHC 34.4 RDW 17.3 H Plt Count 125 L Sodium 137.3 Potassium 4.6 Chloride 102 Carbon Dioxide 23 Anion Gap 12 BUN 11 Creatinine 1.10 Est GFR ( Amer) > 60 Est GFR (Non-Af Amer) > 60 Glucose 93 Calcium 9.0 Impressions: Chest X-Ray 03/27/16 16:09 IMPRESSION: NO ACUTE RADIOGRAPHIC FINDING IN THE CHEST. Abdomen/Pelvis CT 03/27/16 22:29 IMPRESSION: NO SIGNIFICANT OR ACUTE PROCESS IN THE ABDOMEN OR PELVIS. Chest CT 04/01/16 00:00 IMPRESSION: No acute cardiopulmonary findings. Assessment & Plan - Diagnosis (1) Urinary tract infection Qualifiers: Urinary tract infection type: site unspecified Hematuria presence: without hematuria Qualified Code(s): N39.0 - Urinary tract infection, site not specified Is this a current diagnosis for this admission?: Yes (3) Dementia Qualifiers: Dementia type: Alzheimer's disease Alzheimer's disease onset: early- onset Dementia behavioral disturbance: without behavioral disturbance Qualified Code(s): G30.0 - Alzheimer's disease with early onset; F02.81 - Dementia in other diseases classified elsewhere with behavioral disturbance Is this a current diagnosis for this admission?: Yes (4) Hypokalemia Is this a current diagnosis for this admission?: Yes (5) SIRS (systemic inflammatory response syndrome) Is this a current diagnosis for this admission?: Yes (6) Acute kidney injury Is this a current diagnosis for this admission?: Yes
--- NOTE | 2016-04-03 18:10 | PDOC PROGRESS REPORT ---
Subjective Progress Note for:: 04/03/16 Subjective:: He was seen by the bedside, on IV antibiotic, the intravenous cefepime will be discontinued and continue IV clindamycin Physical Exam Vital Signs: Temp Pulse Resp BP Pulse Ox 98.1 F 76 16 119/49 L 100 04/03/16 16:46 04/03/16 16:46 04/03/16 16:46 04/03/16 16:46 04/03/16 16:46 Intake & Output 04/02/16 04/03/16 04/04/16 06:59 06:59 06:59 Intake Total 240 456 220 Output Total 620 350 Balance -380 106 220 Weight 80.6 kg 58.9 kg Respiratory exam: PRESENT: clear to auscultation nino Cardiovascular exam: PRESENT: +S1, +S2 GI/Abdominal exam: PRESENT: soft Neurological exam: PRESENT: alert, CN II-XII grossly intact Results Laboratory Results: 04/02/16 06:47 04/02/16 06:47 Impressions: Chest X-Ray 03/27/16 16:09 IMPRESSION: NO ACUTE RADIOGRAPHIC FINDING IN THE CHEST. Abdomen/Pelvis CT 03/27/16 22:29 IMPRESSION: NO SIGNIFICANT OR ACUTE PROCESS IN THE ABDOMEN OR PELVIS. Chest CT 04/01/16 00:00 IMPRESSION: No acute cardiopulmonary findings. Assessment & Plan - Diagnosis (1) Urinary tract infection Qualifiers: Urinary tract infection type: site unspecified Hematuria presence: without hematuria Qualified Code(s): N39.0 - Urinary tract infection, site not specified Is this a current diagnosis for this admission?: Yes (3) Dementia Qualifiers: Dementia type: Alzheimer's disease Alzheimer's disease onset: early- onset Dementia behavioral disturbance: without behavioral disturbance Qualified Code(s): G30.0 - Alzheimer's disease with early onset; F02.81 - Dementia in other diseases classified elsewhere with behavioral disturbance Is this a current diagnosis for this admission?: Yes (4) Hypokalemia Is this a current diagnosis for this admission?: Yes (5) SIRS (systemic inflammatory response syndrome) Is this a current diagnosis for this admission?: Yes (6) Acute kidney injury Is this a current diagnosis for this admission?: Yes (7) Perineal abscess Is this a current diagnosis for this admission?: YesPlan: Continue IV antibiotic
[2016-04-03 18:35] LABS: ABSOLUTE BASOPHILS # (AUTO) 0.1 10^3/uL (0.0-0.2); ABSOLUTE EOSINOPHILS # (AUTO) 0.1 10^3/uL (0.0-0.6); ABSOLUTE LYMPHOCYTES (AUTO) 0.8 10^3/uL (0.5-4.7); ABSOLUTE MONOCYTES (AUTO) 0.4 10^3/uL (0.1-1.4); ABSOLUTE NEUT (AUTO) 3.9 10^3/uL (1.7-8.2); BASOPHILS % (AUTO) 1.2 % (0-2); EOSINOPHILS % (AUTO) 2.2 % (0-6); HEMATOCRIT 24.8 % (37.9-51.0); HEMOGLOBIN 8.4 g/dL (13.5-17.0); HGB HCT DIFFERENCE 0.4; LYMPHOCYTES % (AUTO) 14.7 % (13-45); MEAN CORPUSCULAR HEMOGLOBIN 26.6 pg (27.0-33.4); MEAN CORPUSCULAR HGB CONC 33.8 g/dL (32.0-36.0); MEAN CORPUSCULAR VOLUME 79 fl (80-97); RED BLOOD COUNT 3.16 10^6/uL (4.35-5.55); RED CELL DISTRIBUTION WIDTH 16.8 % (11.5-14.0); SEGMENTED NEUTROPHILS % (AUTO) 74.9 % (42-78); WHITE BLOOD COUNT 5.2 10^3/uL (4.0-10.5)
[2016-04-04] MEDS: CLINDAMYCIN 600 MG/D5W RTU 600 MG/50 ML RTUPB IV SCH ×3 (02:35→18:13)
--- NOTE | 2016-04-04 12:57 | PDOC PROGRESS REPORT ---
Subjective Progress Note for:: 04/04/16 Subjective:: No overnight events, no fever. Physical Exam Vital Signs: Temp Pulse Resp BP Pulse Ox 98.0 F 76 16 132/55 H 99 04/04/16 08:05 04/04/16 08:05 04/04/16 08:05 04/04/16 08:05 04/04/16 08:05 Intake & Output 04/03/16 04/04/16 04/05/16 06:59 06:59 06:59 Intake Total 456 310 Output Total 350 200 Balance 106 110 Weight 58.9 kg 59 kg General appearance: PRESENT: no acute distress GI/Abdominal exam: PRESENT: soft Rectal exam: PRESENT: deferred, other - The wound on the perineal area was checked, packing was removed, no skin necrosis. There is some purulent discharge , packing was done again and a clean dressing was applied. Results Laboratory Results: 04/03/16 18:18 04/02/16 06:47 04/03/16 18:18 WBC 5.2 RBC 3.16 L Hgb 8.4 L Hct 24.8 L MCV 79 L MCH 26.6 L MCHC 33.8 RDW 16.8 H Plt Count 135 L Seg Neutrophils % 74.9 Lymphocytes % 14.7 Monocytes % 7.0 Eosinophils % 2.2 Basophils % 1.2 Absolute Neutrophils 3.9 Absolute Lymphocytes 0.8 Absolute Monocytes 0.4 Absolute Eosinophils 0.1 Absolute Basophils 0.1 Impressions: Chest X-Ray 03/27/16 16:09 IMPRESSION: NO ACUTE RADIOGRAPHIC FINDING IN THE CHEST. Abdomen/Pelvis CT 03/27/16 22:29 IMPRESSION: NO SIGNIFICANT OR ACUTE PROCESS IN THE ABDOMEN OR PELVIS. Chest CT 04/01/16 00:00 IMPRESSION: No acute cardiopulmonary findings. Assessment & Plan - Diagnosis (1) Perineal abscess Is this a current diagnosis for this admission?: YesPlan: Status post incision and drainage, plan: Sitz bath, local wound care was packing , continue IV antibiotics, follow up culture result.
[2016-04-04] MEDS ORDERED: LIDOCAINE 1% INJ (10 MG/ML) 10 ML MDV INJ PRN (15:45)
[2016-04-04] MEDS ORDERED: ETHYL CHLORIDE SPRAY 103.5 ML/BOTTLE TP PRN (15:45)
[2016-04-04] MEDS ORDERED: METHYLPREDNISOLONE ACETATE INJ 80 MG/1 ML VIAL IM PRN (15:45)
--- NOTE | 2016-04-04 17:38 | PDOC PROGRESS REPORT ---
Subjective Progress Note for:: 04/04/16 Subjective:: Patient was seen by the bedside, he has a very tender swelling of the left knee , bedside arthrocentesis was done , about 100 mL of cloudy synovial fluid was drained and the knee was injected with 80 mg of Depo-Medrol with lidocaine Physical Exam Vital Signs: Temp Pulse Resp BP Pulse Ox 98.0 F 76 16 132/55 H 99 04/04/16 08:05 04/04/16 08:05 04/04/16 08:05 04/04/16 08:05 04/04/16 08:05 Intake & Output 04/03/16 04/04/16 04/05/16 06:59 06:59 06:59 Intake Total 456 310 0 Output Total 350 200 220 Balance 106 110 -220 Weight 58.9 kg 59 kg General appearance: PRESENT: mild distress Eye exam: PRESENT: PERRLA Respiratory exam: PRESENT: clear to auscultation nino Cardiovascular exam: PRESENT: +S1, +S2 Musculoskeletal exam: PRESENT: tenderness - There is swelling, redness and tenderness of the left knee Neurological exam: PRESENT: alert Results Laboratory Results: 04/03/16 18:18 04/02/16 06:47 04/03/16 18:18 WBC 5.2 RBC 3.16 L Hgb 8.4 L Hct 24.8 L MCV 79 L MCH 26.6 L MCHC 33.8 RDW 16.8 H Plt Count 135 L Seg Neutrophils % 74.9 Lymphocytes % 14.7 Monocytes % 7.0 Eosinophils % 2.2 Basophils % 1.2 Absolute Neutrophils 3.9 Absolute Lymphocytes 0.8 Absolute Monocytes 0.4 Absolute Eosinophils 0.1 Absolute Basophils 0.1 Impressions: Chest X-Ray 03/27/16 16:09 IMPRESSION: NO ACUTE RADIOGRAPHIC FINDING IN THE CHEST. Abdomen/Pelvis CT 03/27/16 22:29 IMPRESSION: NO SIGNIFICANT OR ACUTE PROCESS IN THE ABDOMEN OR PELVIS. Chest CT 04/01/16 00:00 IMPRESSION: No acute cardiopulmonary findings. Assessment & Plan - Diagnosis (1) Urinary tract infection Qualifiers: Urinary tract infection type: site unspecified Hematuria presence: without hematuria Qualified Code(s): N39.0 - Urinary tract infection, site not specified Is this a current diagnosis for this admission?: Yes (3) Dementia Qualifiers: Dementia type: Alzheimer's disease Alzheimer's disease onset: early- onset Dementia behavioral disturbance: without behavioral disturbance Qualified Code(s): G30.0 - Alzheimer's disease with early onset; F02.81 - Dementia in other diseases classified elsewhere with behavioral disturbance Is this a current diagnosis for this admission?: Yes (4) Hypokalemia Is this a current diagnosis for this admission?: Yes (5) SIRS (systemic inflammatory response syndrome) Is this a current diagnosis for this admission?: Yes (6) Acute kidney injury Is this a current diagnosis for this admission?: Yes (7) Perineal abscess Is this a current diagnosis for this admission?: Yes (8) Swelling of joint of left knee Is this a current diagnosis for this admission?: YesPlan: Arthrocentesis of the left was done by the bedside, about 100 mL of cloudy synovial fluid was collected and 80 mg of Depo-Medrol with 1% lidocaine 2 mL was injected into the left knee. This is most likely gouty arthropathy. Specimen was sent for crystals
[2016-04-04 19:13] LABS: FLUID TYPE SYNOVIAL
[2016-04-04 19:14] LABS: FLUID APPEARANCE TURBID
[2016-04-04 19:15] LABS: FLUID RBC DILUENT USED SALINE
[2016-04-04 19:16] LABS: FLUID RBC DILUTION FACTOR 10; FLUID RBC SIDE 1 40; FLUID RBC SIDE 2 46; TOTAL RBC SQUARES COUNTED FLD 225
[2016-04-05] MEDS: CLINDAMYCIN 600 MG/D5W RTU 600 MG/50 ML RTUPB IV SCH ×3 (02:08→17:27)
--- NOTE | 2016-04-05 11:17 | PDOC PROGRESS REPORT ---
Subjective Progress Note for:: 04/05/16 Subjective:: No complaints Physical Exam Vital Signs: Temp Pulse Resp BP Pulse Ox 97.4 F 69 16 129/59 H 96 04/05/16 00:47 04/05/16 00:47 04/05/16 00:47 04/05/16 00:47 04/05/16 00:47 Intake & Output 04/04/16 04/05/16 04/06/16 06:59 06:59 06:59 Intake Total 310 200 Output Total 200 245 Balance 110 -45 Weight 59 kg 58.1 kg General appearance: PRESENT: no acute distress Skin exam: ABSENT: other - Wound is clean; no foul smell or drainage. Wound repacked. Nothing further to debride. Results Laboratory Results: 04/03/16 18:18 04/02/16 06:47 04/04/16 04/04/16 17:08 17:08 Fluid Type SYNOVIAL SYNOVIAL Fluid Source KNEE LEFT KNEE Fluid Color YELLOW Fluid Appearance TURBID Fluid Viscosity HIGHLY VISCOUS Fluid WBC 5072 Fluid RBC 477 Impressions: Chest X-Ray 03/27/16 16:09 IMPRESSION: NO ACUTE RADIOGRAPHIC FINDING IN THE CHEST. Abdomen/Pelvis CT 03/27/16 22:29 IMPRESSION: NO SIGNIFICANT OR ACUTE PROCESS IN THE ABDOMEN OR PELVIS. Chest CT 04/01/16 00:00 IMPRESSION: No acute cardiopulmonary findings. Assessment & Plan - Diagnosis (1) Perineal abscess Is this a current diagnosis for this admission?: YesPlan: 1. Continue local wound care; can discontinue packing in 24 hours. 2. Reconsult general surgery as needed. - Time Time Spent with patient: Less than 15 minutes
--- NOTE | 2016-04-05 20:24 | PDOC DISCHARGE SUMMARY ---
General - Admit/Disc Date/PCP Admission Date/Primary Care Provider: 03/27/16 23:40 NAMITA MCCAULEY, Discharge Date: 04/05/16 - Discharge Diagnosis (1) Perineal abscess Is this a current diagnosis for this admission?: Yes (2) Urinary tract infection Is this a current diagnosis for this admission?: Yes (4) Dementia Is this a current diagnosis for this admission?: Yes (5) Hypokalemia Is this a current diagnosis for this admission?: Yes (6) SIRS (systemic inflammatory response syndrome) Is this a current diagnosis for this admission?: Yes (7) Acute kidney injury Is this a current diagnosis for this admission?: Yes (8) Swelling of joint of left knee Is this a current diagnosis for this admission?: Yes (9) Acute gouty arthritis Is this a current diagnosis for this admission?: Yes (10) Metabolic encephalopathy Is this a current diagnosis for this admission?: Yes - Additional Information Resuscitation Status: Full Code Discharge Diet: As Tolerated Discharge Activity: Activity As Tolerated Home Medications: Albuterol Sulfate [Proair HFA] 1 - 2 puff IH Q4 PRN 02/01/15 Amlodipine Besylate 10 mg PO DAILY 02/01/15 Aspirin [Aspirin 81 mg Chewable Tablet] 81 mg PO DAILY 02/01/15 Losartan/Hydrochlorothiazide [Hyzaar 100-12.5 Tablet] 1 each PO DAILY 02/01/15 Omeprazole 40 mg PO DAILY 03/28/16 History of Present Illness History of Present Illness: ALINA LEHMAN is a 89 year old male. He was admitted when he presented with altered mental status due to UTI Hospital Course Hospital Course: Patient was admitted because of altered mental status with presumptive UTI. He was treated with IV antibiotic, he was subsequently found to have perineal l abscess.He was seen by the surgeon and he underwent incision and drainage of the abscess. He also had acute left knee swelling, which was warm to touch, I did a bedside arthrocentesis on the knee and also injected the knee with 80 mg of Depo-Medrol with lidocaine .He also had prerenal acute kidney injury The synovial fluid showed urate crystals consistent with acute gout. Patient is improved considerably is more oriented. Improve diet ready to go home Physical Exam Vital Signs: Temp Pulse Resp BP Pulse Ox 97.3 F 68 18 128/49 H 98 04/05/16 16:05 04/05/16 16:05 04/05/16 16:05 04/05/16 16:05 04/05/16 16:05 Intake & Output 04/04/16 04/05/16 04/06/16 06:59 06:59 06:59 Intake Total 310 200 320 Output Total 200 245 60 Balance 110 -45 260 Weight 59 kg 58.1 kg General appearance: PRESENT: no acute distress Eye exam: PRESENT: PERRLA Respiratory exam: PRESENT: clear to auscultation nino Cardiovascular exam: PRESENT: +S1, +S2 GI/Abdominal exam: PRESENT: soft Neurological exam: PRESENT: alert Results Laboratory Results: 04/03/16 18:18 04/02/16 06:47 04/02/16 19:30 Perineum Gram Stain - Final 04/02/16 19:30 Perineum Wound Culture - Final NO AEROBIC OR ANAEROBIC ORGANISMS RECOVERED Impressions: Chest X-Ray 03/27/16 16:09 IMPRESSION: NO ACUTE RADIOGRAPHIC FINDING IN THE CHEST. Abdomen/Pelvis CT 03/27/16 22:29 IMPRESSION: NO SIGNIFICANT OR ACUTE PROCESS IN THE ABDOMEN OR PELVIS. Chest CT 04/01/16 00:00 IMPRESSION: No acute cardiopulmonary findings.
[2016-04-06] MEDS: CLINDAMYCIN 600 MG/D5W RTU 600 MG/50 ML RTUPB IV SCH ×2 (02:05→09:22)
[2016-04-06 11:43] VITALS: BP 129/61
== END 2016-04-06 13:43 | disposition home health service (06) | DRG 871 ==
LOC: ER 15:56 → EH 23:36 → UNDOADMIN 23:36 → EH 23:40 → 4S 03-28 02:49
PROVIDERS: ADMIT Internal Medicine; ATTEND Internal Medicine
PROC: 0W9M0ZZ Drainage of Male Perineum, Open Approach (ICD-10-PCS; principal; 2016-04-02)
PROC: 0S9D3ZX Drainage of Left Knee Joint, Percutaneous Approach, Diagnostic (ICD-10-PCS; 2016-04-04)
DX: A41.9 Sepsis, unspecified organism (principal); G93.41 Metabolic encephalopathy; L02.215 Cutaneous abscess of perineum; N17.9 Acute kidney failure, unspecified; N39.0 Urinary tract infection, site not specified; I12.9 Hypertensive chronic kidney disease with stage 1 through stage 4 chronic kidney disease, or unspecified chronic kidney disease; N18.9 Chronic kidney disease, unspecified; J44.9 Chronic obstructive pulmonary disease, unspecified; I73.9 Peripheral vascular disease, unspecified; D64.9 Anemia, unspecified; E87.6 Hypokalemia; G30.0 Alzheimer's disease with early onset; F02.80 Dementia in other diseases classified elsewhere, unspecified severity, without behavioral disturbance, psychotic disturbance, mood disturbance, and anxiety; M10.9 Gout, unspecified; K21.9 Gastro-esophageal reflux disease without esophagitis; M15.9 Polyosteoarthritis, unspecified; Z79.899 Other long term (current) drug therapy; Z79.82 Long term (current) use of aspirin; Z87.891 Personal history of nicotine dependence; Z86.73 Personal history of transient ischemic attack (TIA), and cerebral infarction without residual deficits
CPT/HCPCS: 36415; 51701; 71010; 71250; 74176; 80048; 80053; 81001; 83605; 83690; 83735; 84560; 85025; 85027; 85610; 87040; 87070; 87075; 87086; 87205; 87804; 89050; 89060; 93005; 93010; 96361; 96365; 96375; 99285; J0692; J0696; J1650; J3370; J3480; J3490; J7030; S0028